=== PATIENT | female | born 1935 | race Two or more races ===

== ENCOUNTER 2021-03-13 08:53 | Day surgery (SDC) | payer OTHER ==
[~2021-03-13] VITALS: Ht 152.4 cm; Wt 63.5 kg
[~2021-03-13 08:53] MED LIST: ACET650T4 PO; ALPR0.25 PO; CHOL10009 PO; DOCU100T15 PO; FENO160T8 PO; FERR-20 PO; GABA100C9 PO; IRBE150T49 PO; LEVO88TA4 PO; LISI20TA28 PO
[2021-03-13] MEDS ORDERED: VANCOMYCIN 1GM/250ML 250 ML IV ONE (09:15)
[2021-03-13] MEDS ORDERED: LIDOCAINE 2%HCL (LOCAL ANESTH.) INJ 20ML MDV ONE (10:38)
[2021-03-13] MEDS ORDERED: ceFAZolin 1GM VL ONE (10:43)
[2021-03-13] MEDS ORDERED: fentaNYL CITRATE 100 MCG/2 ML VL ONE (10:48)
[2021-03-13] MEDS ORDERED: MIDAZOLAM HCL 2MG/2ML 2ml VIAL (1mg/ml) ONE (10:49)
[2021-03-13] MEDS ORDERED: ACETAMINOPHEN 325 MG TAB PO PRN (11:30)
== END 2021-03-13 13:05 | disposition home or self-care (01) ==
LOC: CATH 08:53
PROVIDERS: ATTEND Internal Medicine Cardiovascular Disease
DX: Z45.010 Encounter for checking and testing of cardiac pacemaker pulse generator [battery] (principal); I49.5 Sick sinus syndrome; I10 Essential (primary) hypertension; E78.5 Hyperlipidemia, unspecified; Z79.899 Other long term (current) drug therapy; Z98.890 Other specified postprocedural states; Z20.822 Contact with and (suspected) exposure to COVID-19
CPT/HCPCS: 33228; 93005; C1785; J0690; J2250; J3010; J3370; U0003; 99152; 99153